=== PATIENT | female | born 1990 | race Two or more races ===

== ENCOUNTER → 2022-09-05 | Outpatient (CLI) | payer SELFPAY ==
[2022-09-10 16:09] LABS: HPV APTIMA, High Risk Negative (Negative)
== END | disposition home or self-care (01) ==
PROVIDERS: Visit Provider Student in an Organized Health Care Education/Training Program
DX: Z12.4 Encounter for screening for malignant neoplasm of cervix (principal)
CPT/HCPCS: 87624; 88175; G0145

== ENCOUNTER → 2023-02-02 | Outpatient (CLI) | payer OTHER, SELFPAY ==
[2023-02-02 18:19] LABS: hCG Titer Quant., Serum 66168 mIU/mL (1-3)
== END | disposition home or self-care (01) ==
PROVIDERS: Referring Provider Registered Nurse; Visit Provider Registered Nurse
DX: O26.859 Spotting complicating pregnancy, unspecified trimester (principal); Z3A.00 Weeks of gestation of pregnancy not specified
CPT/HCPCS: 36415; 84702; 86850; 86900; 86901

== ENCOUNTER → 2023-02-06 | Outpatient (CLI) | payer OTHER, SELFPAY | END | disposition home or self-care (01) | LOC: LAB 16:04 | PROVIDERS: Referring Provider Registered Nurse; Visit Provider Registered Nurse | DX: O26.859 Spotting complicating pregnancy, unspecified trimester (principal); Z3A.00 Weeks of gestation of pregnancy not specified | CPT/HCPCS: 36415; 84702 ==

== ENCOUNTER → 2023-02-11 | Outpatient (CLI) | payer OTHER, SELFPAY ==
--- NOTE | 2023-02-11 07:35 | US_ITS ---
STUDY: FIRST TRIMESTER OBSTETRICAL ULTRASOUND REASON FOR EXAM: Female, 32 years old viability,SPOTTING LMP: December 25, 2022. TECHNIQUE: Transabdominal and Transvaginal TECHNICAL QUALITY: Adequate. PRIOR ULTRASOUND: None. FINDINGS: There is visualization of a single gestational sac in a normal intrauterine position. The mean sac diameter (MSD) measures 3.7 cm, indicating an estimated gestational age (EGA) of 9 weeks, 0 days. The gestational sac shape is within normal limits. There is a visualized yolk sac. The yolk sac measures 4.7 mm. The placenta is non-visualized. There is visualization of a live embryo. The crown-rump length (CRL) measures 2.28 cm, indicating an estimated gestational age (EGA) of 8 weeks, 5 days. There is demonstrated cardiac activity with a heart rate of 174 bpm. The estimated gestation age (EGA) by LMP is 8 weeks, 6 days. The estimated date of delivery (KATE) by LMP is September 17, 2023. The estimated gestation age (EGA) by US is 8 weeks, 6 days. The estimated date of delivery (KATE) by US is September 17, 2023. The uterus measures 11.2 cm x 8.8 cm x 7 cm. There is no demonstrated uterine fibroid. The cervix is closed. Small subchorionic hematoma. Findings suggest 1 1.3 cm x 1.8 cm x 0.7 cm fundal fibroid. The right ovary measures 3.1 cm x 3 cm x 2.3 cm. There is no right ovarian cyst. There is a 3.1 cm x 2.8 cm x 2.4 cm complex solid and cystic mass. Peripheral blood flow is seen. A neoplastic process should be ruled out. This may also represent a coexistent ectopic . The left ovary measures 3.3 cm x 3.7 cm x 1.7. There is no left ovarian cyst. There is no visualized left adnexal mass or complex lesion. There is no fluid in the cul de sac. US/Transvaginal w/Preg US IMPRESSION: Single live intrauterine gestation with a mean gestational age of 8 weeks and 6 days. Complex solid and cystic mass in the right adnexa as described. Coexistent ectopic should be ruled out. Electronically Signed: Kin Martines MD at 9:13 EST ,
== END | disposition home or self-care (01) ==
LOC: US 07:35
PROVIDERS: Referring Provider Registered Nurse; Visit Provider Registered Nurse
DX: O26.859 Spotting complicating pregnancy, unspecified trimester (principal); Z3A.00 Weeks of gestation of pregnancy not specified
CPT/HCPCS: 76817

== ENCOUNTER → 2023-02-13 | Outpatient (CLI) | payer OTHER, SELFPAY ==
[2023-02-17 00:06] LABS: Chlamydia By Nucleic Acid AMP Negative (Negative); Gonococcus By Nucleic Acid AMP Negative (Negative)
== END | disposition home or self-care (01) ==
LOC: LAB 16:56 → LABSPEC 16:59
PROVIDERS: Referring Provider Registered Nurse; Visit Provider Registered Nurse
DX: Z34.90 Encounter for supervision of normal pregnancy, unspecified, unspecified trimester (principal); Z3A.00 Weeks of gestation of pregnancy not specified
CPT/HCPCS: 87086; 87088; 87491; 87591

== ENCOUNTER → 2023-03-04 | Outpatient (CLI) | payer OTHER, SELFPAY ==
[2023-03-04 14:47] LABS: Absolute Neutrophil Count 4.7 X10^3/uL (2.0-7.7); Basophil# 0.02 X10^3/uL; Basophil% 0.3 % (0-1); Eosinophil# 0.16 X10^3/uL; Eosinophils% 2.4 % (0-5); Hematocrit 40.7 % (37-47); Hemoglobin 13.4 g/dL (12.0-15.0); Lymphocyte % 19.4 % (19-41); Mean Corp Hgb Conc 32.9 g/dL (32-36); Mean Corpuscular Hgb 28.7 pg (27.0-32.0); Mean Corpuscular Volume 87.2 fL (81-99); Mean Platelet Vol. 8.8 fl (6.2-12.0); Monocyte# 0.48 X10^3/uL; Monocyte% 7.2 % (0-10); NRBC Flagged by Analyzer 0 % (0-5); Neutrophil # 4.67 X10^3/uL (2.7-7.7); Neutrophil % 69.8 % (47-70); Platelet Count 217 K/mm3 (150-450); RBC Distribution Width CV 13.3 % (11.6-14.6); RBC Distribution Width SD 42.5 fl (35.1-43.9); Red Blood Count 4.67 M/mm3 (4.2-5.4); White Blood Count 6.7 K/mm3 (4.4-11.0)
[2023-03-04 15:14] LABS: NATERA MAILED SPECIMEN
[2023-03-04 17:16] LABS: HIV - WCH Non-Reactive (Nonreactive); Hepatitis B Surface Antigen Non-Reactive (Nonreactive); Hepatitis C Antibody Non-Reactive (Nonreactive); Rubella IgG Reactive (Nonreactive); Syphilis Antibodies Non-reactive
== END | disposition home or self-care (01) ==
PROVIDERS: Referring Provider Registered Nurse; Visit Provider Registered Nurse
DX: Z34.90 Encounter for supervision of normal pregnancy, unspecified, unspecified trimester (principal); Z3A.00 Weeks of gestation of pregnancy not specified
CPT/HCPCS: 85025; 86703; 86762; 86780; 86803; 86850; 86900; 86901; 87340

== ENCOUNTER → 2023-03-04 | Outpatient (CLI) | payer OTHER, SELFPAY ==
--- NOTE | 2023-03-04 13:10 | US_ITS ---
EXAM: US , TRANSVAGINAL CLINICAL INDICATION: OVARIAN CYST IN TECHNIQUE: Real-time transvaginal obstetrical ultrasound of the maternal pelvis and a first trimester with image documentation. Transvaginal imaging was used for better evaluation of the fetus and adnexa. COMPARISON: 02/11/2023 FINDINGS: GESTATION: Mean sac diameter: 5.88 cm. Mcclave-rump length: 6.08 cm (12 weeks, 4 days). Yolk sac: 0.8 cm. heart rate: 150 to beats per minute. PLACENTA/AMNIOTIC FLUID: Posterior placenta. UTERUS/CERVIX: Subserosal, mildly triangulated uterine fibroid measuring 2.8 cm. The cervix is closed. The uterus measures 13.1 x 9.3 x 10.9 cm. OVARIES: No significant abnormality. No mass. The right ovary measures 4.1 x 2.3 x 3.0 cm. The left ovary measures 2.7 x 2.0 x 2.9 cm. FREE FLUID: No free fluid. US/Transvaginal w/Preg US IMPRESSION: Uterine fibroid. This may have been perceived as an adnexal mass on prior exam. Otherwise, viable IUP with interval growth. Electronically Signed: Damon Reynolds DO at 20:19 EST ,
== END | disposition home or self-care (01) ==
PROVIDERS: Referring Provider Obstetrics & Gynecology; Visit Provider Obstetrics & Gynecology
DX: O26.859 Spotting complicating pregnancy, unspecified trimester (principal); N83.8 Other noninflammatory disorders of ovary, fallopian tube and broad ligament; Z3A.00 Weeks of gestation of pregnancy not specified; O99.891 Other specified diseases and conditions complicating pregnancy
CPT/HCPCS: 76817

== ENCOUNTER 2023-04-24 14:16 | Outpatient (CLI) | payer OTHER, SELFPAY ==
--- NOTE | 2023-04-24 14:21 | US_ITS ---
HISTORY: ANATOMY. TECHNIQUE: Transabdominal pelvic ultrasound was performed. 107 images. COMPARISON: 03/04/2023. FINDINGS: UTERUS: Pedunculated 1.9 x 2.8 x 3.9 cm lesion again seen. INTRAUTERINE GESTATION(s): Single. PRESENTATION: Cephalic HEART MOTION: 150 bpm. PLACENTA: Posterior, grade 0. No placenta previa. CERVIX: 3.6 cm, long and closed AMNIOTIC FLUID: Largest fluid pocket 6.1 cm biometry- BIPARIETAL DIAMETER: 4.5 cm, corresponding to 19 weeks 4 days. HEAD CIRCUMFERENCE: 16.4 cm, corresponding to 19 weeks 1 day. ABDOMINAL CIRCUMFERENCE: 13.6 cm, corresponding to 19 weeks 0 days. FEMUR LENGTH: 2.9 cm, corresponding to 18 weeks 6 days. ESTIMATED GESTATIONAL AGE: 19 weeks 1 day. ESTIMATED DUE DATE (KATE): 09/17/2023. ESTIMATED WEIGHT: 271 g corresponding to 39th percentile. ANATOMY: Face with orbits, nose/lips, facial profile, anterior and posterior cranial fossa, spine, bilateral upper and lower extremities, four-chamber heart, three-vessel cord insertion, stomach, kidneys, and bladder visualized US/OB Anatomy w/ Transvaginal IMPRESSION: Single living intrauterine with an estimated gestational age of 19 weeks 1 day. Unremarkable anatomic survey. Redemonstration of 2.8 cm pedunculated leiomyoma of the maternal uterus. Electronically Signed: Cici Fortune MD at 12:21 EST ,
== END 2023-04-24 23:59 | disposition home or self-care (01) ==
PROVIDERS: Referring Provider Nurse Practitioner Women's Health; Visit Provider Nurse Practitioner Women's Health
DX: Z34.92 Encounter for supervision of normal pregnancy, unspecified, second trimester (principal); Z3A.19 19 weeks gestation of pregnancy
CPT/HCPCS: 76805; 76817

== ENCOUNTER → 2023-06-26 | Outpatient (CLI) | payer OTHER, SELFPAY ==
[2023-06-26 15:27] LABS: Absolute Lymphocyte Count 1.43 X10^3/uL (0.83-4.51); Absolute Neutrophil Count 7.4 X10^3/uL (2.0-7.7); Basophil# 0.04 X10^3/uL; Basophil% 0.4 % (0-1); Eosinophil# 0.13 X10^3/uL; Eosinophils% 1.4 % (0-5); Hematocrit 35.5 % (37-47); Hemoglobin 11.8 g/dL (12.0-15.0); Lymphocyte # 1.43 X10^3/ul (0.83-4.51); Lymphocyte % 14.9 % (19-41); Mean Corp Hgb Conc 33.2 g/dL (32-36); Mean Corpuscular Hgb 28.9 pg (27.0-32.0); Mean Corpuscular Volume 86.8 fL (81-99); Mean Platelet Vol. 9.3 fl (6.2-12.0); Monocyte# 0.43 X10^3/uL; Monocyte% 4.5 % (0-10); NRBC Flagged by Analyzer 0 % (0-5); Neutrophil # 7.42 X10^3/uL (2.7-7.7); Neutrophil % 77.3 % (47-70); Platelet Count 240 K/mm3 (150-450); RBC Distribution Width CV 13.2 % (11.6-14.6); RBC Distribution Width SD 41.4 fl (35.1-43.9); Red Blood Count 4.09 M/mm3 (4.2-5.4); White Blood Count 9.6 K/mm3 (4.4-11.0)
[2023-06-26 16:03] LABS: Glucose Challenge Gest 1H 50g 150 mg/dL (70-140)
[2023-06-26 16:33] LABS: HIV - WCH Non-Reactive (Nonreactive); Syphilis Antibodies Non-reactive
== END | disposition home or self-care (01) ==
PROVIDERS: Obstetrics & Gynecology; Referring Provider Obstetrics & Gynecology; Visit Provider Obstetrics & Gynecology
DX: O09.92 Supervision of high risk pregnancy, unspecified, second trimester (principal); Z13.1 Encounter for screening for diabetes mellitus; Z3A.00 Weeks of gestation of pregnancy not specified
CPT/HCPCS: 36415; 82950; 85025; 86703; 86780

== ENCOUNTER → 2023-07-07 | Outpatient (CLI) | payer OTHER, SELFPAY ==
[2023-07-07 10:46] LABS: Glucose GTT-Gestation. Fasting 94 mg/dL (<105)
[2023-07-07 11:49] LABS: Glucose GTT-Gestational 1 Hr 160 mg/dL (<190)
[2023-07-07 12:53] LABS: Glucose GTT-Gestational 2 Hr 109 mg/dL (<165)
== END | disposition home or self-care (01) ==
LOC: LAB 09:49
PROVIDERS: Referring Provider Obstetrics & Gynecology; Visit Provider Obstetrics & Gynecology
DX: O99.810 Abnormal glucose complicating pregnancy (principal); Z3A.00 Weeks of gestation of pregnancy not specified
CPT/HCPCS: 36415; 82951; 82952

== ENCOUNTER → 2023-08-24 | Outpatient (CLI) | payer OTHER, SELFPAY ==
--- NOTE | 2023-08-24 15:50 | US_ITS ---
STUDY: SECOND AND THIRD TRIMESTER OBSTETRICAL ULTRASOUND - LIMITED REASON FOR EXAM: Female, 33 years old gestational diabetes PRIOR ULTRASOUND: Prior study dated: 04/24/2023 TECHNIQUE: Transabdominal pelvic ultrasound. TECHNICAL QUALITY: Adequate. FINDINGS: There is a single intrauterine fetus. The fetus is in a cephalic presentation. There is demonstrated cardiac activity with a heart rate of 158 bpm. There is decreased amniotic fluid volume consistent with oligohydramnios. The largest amniotic fluid pocket measures 4.4 cm. The amniotic fluid index (ADVIN) is 6.9 cm. The placenta is posterior in location and is not low lying. There are Grade 2 placental changes. The cervix is not visualized. BIOMETRY: BPD: 9.3 cm: 37 weeks, 4 days HC: 32.8 cm: 37 weeks, 2 days AC: 32.6 cm: 36 weeks, 3 days FL: 6.8 cm: 34 weeks, 6 days Age by LMP: 36 weeks, 4 days. KATE by LMP: 09/17/2023. age by current US: 36 weeks, 4 days. KATE by current US: 09/17/2023. Estimated weight: 2922 grams, +/- 438 grams, 48 percentile. US/OB Limited With Biometrics IMPRESSION: Single live intrauterine with gestational age by ultrasound of 36 weeks 4 days. Oligohydramnios. Electronically Signed: Jatin Fernández MD at 22:45 EDT ,
== END | disposition home or self-care (01) ==
PROVIDERS: Referring Provider Obstetrics & Gynecology; Visit Provider Obstetrics & Gynecology
DX: O09.92 Supervision of high risk pregnancy, unspecified, second trimester (principal); Z3A.00 Weeks of gestation of pregnancy not specified
CPT/HCPCS: 76816; 87077; 87081; 87186

== ENCOUNTER 2023-08-26 15:15 | Inpatient (IN) | payer OTHER, SELFPAY ==
[2023-08-26] VITALS (16 sets, daily range): BP systolic 92–124; BP diastolic 58–75; PULSE 71–101; RESP 14–18; TEMP 36.2–36.9; O2SAT 97–100; BMI 32.1
--- NOTE | 2023-08-26 10:58 | US_ITS ---
STUDY: OBSTETRICAL ULTRASOUND - BIOPHYSICAL PROFILE REASON FOR EXAM: Female, 33 years old suspected oligohydramnios LMP: December 11, 2022. PRIOR ULTRASOUND: Comparison is made with prior study dated August 24, 2023. TECHNIQUE: Transabdominal TECHNICAL QUALITY: Adequate. FINDINGS: There is a single intrauterine fetus. The fetus is in a cephalic presentation. There is demonstrated cardiac activity with a heart rate of 143 bpm. There is a normal amniotic fluid volume. The largest amniotic fluid pocket measures 3.87 x 3.2 cm. The amniotic fluid index (DAVIN) is 10.5 cm. The placenta is posterior in location and is not low lying. There are Grade 0 placental changes. Age by LMP: 36 weeks, 6 days. KATE by LMP: September 17, 2023. age by prior US: 36 weeks, 6 days. KATE by prior US: September 17, 2023. BIOPHYSICAL PROFILE: Breathing Movements (FBM): 2 Gross Body Movements (GBM): 2 Tone (FT): 2 Amniotic Fluid Volume (AFV): 2 TOTAL SCORE: 8 / 8 US/Biophysical Prof W/O Non Stres IMPRESSION: Normal biophysical profile of 8/8. Electronically Signed: Kin Martines MD at 12:15 EDT ,
--- NOTE | 2023-08-26 12:55 | OB.TRI.HP_ITS ---
HPI - General HPI Narrative MILLY OCHOA, is a 33 y/o who presents to L&D due to low fluid noted on ultrasound 2 days ago that was not reported to our office until today. The repeat DAVIN today is 10 with a bpp of 8/8 however during her NST there was a prolonged decel that touched 80 bpm and slowly returned to baseline. Since then (40 minutes) the tracing is category 1 without decelerations Maternal Data Information KATE Calculator Estimated Delivery Date Method Current WG Current Estimate 09/17/23 LMP (Certain) 36w 6d PFSH PFSH Home Medications ?Medication ?Instructions ?Recorded ?Last Taken ?Type docosahexaenoic acid 200 mg mg PO 02/12/23 Unknown History capsule ( DHA) blood sugar diagnostic (Blood #120 ea 07/09/23 Unknown Rx Glucose Test strips) blood-glucose meter #1 ea 07/09/23 Unknown Rx lancets #200 ea 07/09/23 Unknown Rx flash glucose scanning reader #1 ea 07/24/23 Unknown Rx (FreeStyle Agustin 2 [place]) flash glucose sensor (FreeStyle #1 ea 07/24/23 Unknown Rx Agustin 2 Sensor kit) Allergy/AdvReac Type Severity Reaction Status Date / Time No Known Allergies Allergy Verified 08/24/23 14:50 Family History Grandmother Cancer Stomach Grandfather Diabetes Surgical History H/O section Social History adopted: No household members: spouse, children and other details: [id number] housing: house number of children: 1 current occupational status: employed current occupation: [employer] current occupational exposures/hazards: No pets and animals: Yes (1) pets and animals: other details: bunny history of recent travel: Yes details: - September out of state: Yes out of country: No sexually active: Yes Smoking Status: Never smoker alcohol intake: never substance use type: does not use well-balanced diet: daily or most days caffeine: No eating out: rarely or never during the past year weight has: remained stable what type of physical activity do you participate in: bicycling frequency: 3-4 times per week duration: 30-45 minutes/day dana/baptist: [employer] seatbelt use: always do you feel safe at home: No additional social history: : 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 Date Name GA/Weeks Outcome Route Bth Weight Infant Gen Labor Lgth Ane sthesia Del Locatn Provider FOB 11/07/13 Victoria 39 live - full term 6lbs Female epidural [place] Delivery Date: 11/07/13 Last Updated by: Kya Ramon, CHRISTOPHM had meconium, no issues Visit Details Expected Delivery Route/Plan undecided tolac vs repeat cs patient counseled regarding risks/benefits of trial of labor versus repeat . ACOG/uptodate education given to patient. [] % likelihood of success per calculator TOLAC consent form signed: [] Labor Preferences- CB/BF classes: [] labor support person: [] labor intervention preferences: [] pain management options preferred: [] cut cord/dad catch: [] : [] PP control planned: [] discussed possible routes of delivery and associated risks: [] special requests: [] Plans Covid status: [] Flu vaccine: [] Tdap vaccine: [] Rhogam: [] LARC form signed: [] Problem list reviewed and updated with the most current plan of care details and appropriate orders placed. Relevant counseling for the gestational age provided. Continue routine care and follow up unless otherwise noted in visit notes/problem list details OB Flowsheet Initial Weight: 165 lb Date -?-?-?-?-?-?-?-?-?-?--?-?- EGA Weight BP Urine Prot -?-?-?-?-?-?-?-?-?-?-?-?- Glucose FHR FuHt Pres Dilation -?-?-?-?-?-?-?-?-?-?-?-?- Effaced St Visit Note 02/13/23 -?-?-?-?-?-?-?-?-?-?-?-?- 9w 1d 165 lb 4 oz (+4 oz) 122/84 -?-?-?-?-?-?-?-?-?-?-?-?- 171 -?-?-?-?-?-?-?-?-?-?-?-?- LC- CRL con with LMP 03/11/23 -?-?-?-?-?-?-?-?-?-?-?-?- 12w 6d 169 lb 4 oz (+4 lb 4 oz) 116/77 Negative -?-?-?-?-?-?-?-?-?-?-?-?- Negative 162 -?-?-?-?-?-?-?-?-?-?-?-?- MH-No further VB . Reviewed normal PN labs. Denies concerns 04/10/23 -?-?-?-?-?-?-?-?-?-?-?-?- 17w 1d 168 lb 8 oz (+3 lb 8 oz) 104/71 Negative -?-?-?-?-?-?-?-?-?-?-?-?- Negative 149 -?-?-?-?-?-?-?-?-?-?-?-?- LC- no vb/crampi ng. anatomy to be scheduled with [facility] due to insurance coverage. order in. 05/08/23 -?-?-?-?-?-?-?--?-?-?-?-?- 21w 1d 172 lb (+7 lb) 118/76 Negative -?-?-?-?-?-?-?-?-?-?-?-?- Negative 157 -?-?-?-?-?-?-?-?-?-?-?-?- JV- no lof, vagi nal bleeding, or cramping. normal [facility] anatomy scan. 06/05/23 -?-?-?-?-?-?-?-?-?-?-?-?- 25w 1d 176 lb (+11 lb) 101/69 Negative -?-?-?-?-?-?-?-?-?-?-?-?- Negative 145 29 -?-?-?-?-?-?-?-?-?-?-?-?- KW-no lof/vb/ctx . good fm. 28 week labs discussed. KW-no lof/vb/ctx. good fm. 2 8 week labs discussed. Unsure if she desires TOLAC or R C/S. Has P C/S in [place] for mec stained fluid. She was 6cm. Requested her to bring in records of previous c/s to know mode of delivery. 06/26/23 -?-?-?-?-?-?-?-?-?-?-?-?- 28w 1d 179 lb 2 oz (+14 lb 2 oz) 124/77 Negative -?-?-?-?-?-?-?-?-?-?-?-?- Negative 140 28 -?-?-?-?-?-?-?-?-?-?-?-?- JV- no lof, vagi nal bleeding, or dec fm. plan for tdap next visit. gct pending. 07/09/23 -?-?-?-?-?-?-?-?-?-?-?-?- 30w 0d 177 lb 6 oz (+12 lb 6 oz) 100/68 Negative -?-?-?-?-?-?-?-?-?-?-?-?- Negative 147 30 -?-?-?-?-?-?-?-?-?-?-?-?- MH-No VB, LOF. G ood FM. Larc. Tdap. Discussed results of 3 hr GTT:missed 4th draw-was told by lab all done, go eat, so left. Will check glucose QID. 07/24/23 -?-?-?-?-?-?-?-?-?-?-?-?- 32w 1d 178 lb 6 oz (+13 lb 6 oz) 100/67 Negative -?-?-?-?-?-?-?-?-?-?-?-?- Negative 138 32 -?-?-?-?-?-?-?-?-?-?-?-?- JV- glucose log reviewed.there were 2 outliers. continue monitoring. pt wants a agustin or dexcon. she also wants to now. r/b/a discussed. will need consent form by 36 weeks. 08/04/23 -?-?-?-?-?-?-?-?-?-?-?-?- 33w 5d 175 lb 4 oz (+10 lb 4 oz) 106/68 Negative -?-?-?-?-?-?-?-?-?-?-?-?- Negative 125 35 -?-?-?-?-?-?-?-?-?-?-?-?- JV- glucose log reviewed and overall doing well. plan to write down the outliers separate for easier review. no lof, vaginal bleeding, or dec fm. 08/17/23 -?-?-?-?-?-?-?-?-?-?-?-?- 35w 4d 177 lb (+12 lb) 102/65 Negative -?-?-?-?-?-?-?-?-?-?-?-?- Negative 135 36 -?-?-?-?-?-?-?-?-?-?-?-?- KW- Good fm. no vb/lof/ctx. Has C/S scheduled for september 09 with [facility]. discussed gbs and US next week. 08/24/23 -?-?-?-?-?-?-?-?-?-?-?-?- 36w 4d 178 lb 6 oz (+13 lb 6 oz) 115/77 Negative -?-?-?-?-?-?-?-?-?-?-?-?- Negative 135 37 Cephalic 2 -?-?-?-?-?-?-?-?-?-?-?-?- 70 -2 KW-no vb/l of/cramping. good fm. US today. GBS today. ROS Constitutional Constitutional: Reports systems reviewed and no addt'l complaints, except as documented Gastrointestinal Gastrointestinal: Denies bloating, constipation, cramping, diarrhea, nausea or vomiting Genitourinary Genitourinary: Reports other Details: Denies vaginal odor, vaginal bleeding, or vaginal discharge ; Denies difficulty urinating or flank pain Physical Exam HEENT normocephalic Resp normal respiratory effort and normal air movement no CVA tenderness Speculum Exam - Cervix: other 2/60/-3 firm, midposition Extremity normal to inspection General Extremity: edema bilateral (trace ) NST FHR Rate Baby A Baseline: 140 Variability:: Moderate Accelerations:: 15 x 15 Decelerations:: Variable and Prolonged NST Reactive:: Yes FHR Category:: Category II Assessment & Plan (1) Abnormal glucose affecting : COMMENT: Missed 4th draw-lab told her she could leave and go eat. Patient with test glucose X 2 weeks. (2) H/O section: COMMENT: Wants C Section!! in [place], 2013. P C/C for Mec stained fluid. Records needed. -unable to get records. incision is unknown. -she is undecided if wants to proceed with rpt section or wants TOLAC. risks discussed today. -as of 07/24/2023 wants to try . -changed mind about on 08/03. plan rpt section RLTCS scheduled for 09/09 @ 7:10 with [facility] (3) Supervision of high-risk : QUALIFIERS: Trimester: second trimester Qualified Code(s): O09.92 - Supervision of high risk , unspecified, second trimester COMMENT: , KATE 09/17/23, PC: Victoria, : Sharif (4) : QUALIFIERS: Weeks of gestation: 36 weeks Qualified Code(s): Z3A.36 - 36 weeks gestation of COMMENT: Discussed genetic/carrier testing, nl anatomy (5) Uterine fibroid: QUALIFIERS: Uterine leiomyoma location: unspecified location Qualified Code(s): D25.9 - Leiomyoma of uterus, unspecified COMMENT: small subserosal fibroid PLAN: Plan plan at this time is to monitor longer. if has another deceleration will proceed with section. Charges/Coding Multi Select Codes Visit Charges Office Visit/Consults: 87039 OV L3 Est 20min Urinary/Genital Urinary/Genital CPT Codes: 62552-65 non-stress test Interp
[2023-08-26] MEDS: Lactated Ringers 1,000 ML 999 ML IV (15:40)
[2023-08-26 15:53] LABS: Absolute Lymphocyte Count 1.98 X10^3/uL (0.83-4.51); Absolute Neutrophil Count 9.2 X10^3/uL (2.0-7.7); Basophil# 0.03 X10^3/uL; Basophil% 0.3 % (0-1); Eosinophil# 0.05 X10^3/uL; Eosinophils% 0.4 % (0-5); Hemoglobin 11.8 g/dL (12.0-15.0); Lymphocyte # 1.98 X10^3/ul (0.83-4.51); Lymphocyte % 16.5 % (19-41); Mean Corp Hgb Conc 32.8 g/dL (32-36); Mean Corpuscular Hgb 27.9 pg (27.0-32.0); Mean Corpuscular Volume 85.1 fL (81-99); Mean Platelet Vol. 9.5 fl (6.2-12.0); Monocyte# 0.65 X10^3/uL; Monocyte% 5.4 % (0-10); NRBC Flagged by Analyzer 0 % (0-5); Neutrophil # 9.18 X10^3/uL (2.7-7.7); Neutrophil % 76.5 % (47-70); Platelet Count 243 K/mm3 (150-450); RBC Distribution Width CV 12.9 % (11.6-14.6); RBC Distribution Width SD 39.5 fl (35.1-43.9); Red Blood Count 4.23 M/mm3 (4.2-5.4)
[2023-08-26] MEDS: Acetaminophen 500 MG Tablet 1000 MG PO ×2 (15:57→21:46)
[2023-08-26] MEDS: Sodium Citrate/Citric Acid 30 ML UDC PO (15:57)
[2023-08-26] MEDS: Cefazolin 2 GM in 0.9% Normal Saline (100mL Bag) 100 ML IV (15:57)
--- NOTE | 2023-08-26 16:34 | HP.PCM.OB_ITS ---
HPI - General General Date of Admission: 08/26/23 HPI Narrative MILLY OCHOA, is a 33 y/o @ 36 weeks 6 days who presents to L&D initially for a stat repeat DAVIN due to oligohydramnios reading on ultrasound 2 days ago. The repeat davin wsa 10 and bpp was 8/8, however the tracing showed 3 separate heart rate decelerations including one prolonged deceleration. The patient also complains of pain in her abdominal area but states is mild and she thinks could be contractions. She has a history of prior section with an unknown incision scar on the uterus. She was delivered [place]. Plan is for a repeat section now. Maternal Data Information KATE Calculator Estimated Delivery Date Method Current WG Current Estimate 09/17/23 LMP (Certain) 36w 6d PFSH [facility] Medical History (Updated 08/26/23 @ 16:[address] Sridevi Barth, DO) Gestational diabetes Home Medications ?Medication ?Instructions ?Recorded ?Last Taken ?Type blood sugar diagnostic (Blood #120 ea 07/09/23 Unknown Rx Glucose Test strips) blood-glucose meter #1 ea 07/09/23 Unknown Rx lancets #200 ea 07/09/23 Unknown Rx flash glucose scanning reader #1 ea 07/24/23 Unknown Rx (FreeStyle Agustin 2 [place]) flash glucose sensor (FreeStyle #1 ea 07/24/23 Unknown Rx Agustin 2 Sensor kit) Allergy/AdvReac Type Severity Reaction Status Date / Time No Known Allergies Allergy Verified 08/26/23 15:24 Family History Grandmother Cancer Stomach Grandfather Diabetes Surgical History H/O section Social History adopted: No household members: spouse, children and other details: [id number] housing: house number of children: 1 current occupational status: employed current occupation: [employer] - [employer] current occupational exposures/hazards: No pets and animals: Yes (1) pets and animals: other details: bunny history of recent travel: Yes details: - September out of state: Yes out of country: No sexually active: Yes Smoking Status: Never smoker alcohol intake: never substance use type: does not use well-balanced diet: daily or most days caffeine: No eating out: rarely or never during the past year weight has: remained stable what type of physical activity do you participate in: bicycling frequency: 3-4 times per week duration: 30-45 minutes/day dana/shinto: Evangelical seatbelt use: always do you feel safe at home: No additional social history: : 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 Date Name GA/Weeks Outcome Route Bth Weight Gen Labor Lgth Anesthesia Del Locatn Provider FOB 11/07/13 Victoria 39 live - full term 6lbs Female epidural [place] Delivery Date: 11/07/13 Last Updated by: CHRISTOPH PérezM had meconium, no issues Visit Details Expected Delivery Route/Plan undecided tolac vs repeat cs patient counseled regarding risks/benefits of trial of labor versus repeat . ACOG/uptodate education given to patient. [] % likelihood of success per calculator TOLAC consent form signed: [] Labor Preferences- CB/BF classes: [] labor support person: [] labor intervention preferences: [] pain management options preferred: [] cut cord/dad catch: [] : [] PP control planned: [] discussed possible routes of delivery and associated risks: [] special requests: [] Plans Covid status: [] Flu vaccine: [] Tdap vaccine: [] Rhogam: [] LARC form signed: [] Problem list reviewed and updated with the most current plan of care details and appropriate orders placed. Relevant counseling for the gestational age provided. Continue routine care and follow up unless otherwise noted in visit notes/problem list details OB Flowsheet Initial Weight: 165 lb Date -?-?-?-?-?-?-?-?-?-?-?-?- EGA Weight BP Urine Prot -?-?-?-?-?-?-?-?-?-?-?-?- Glucose FHR FuHt Pres Dilation -?-?-?-?-?-?-?-?-?-?-?-?- Effaced St Visit Note 02/13/23 -?-?-?-?-?-?-?-?-?-?-?-?- 9w 1d 165 lb 4 oz (+4 oz) 122/84 -?-?-?-?-?-?-?-?-?-?-?-?- 171 -?-?-?-?-?-?-?-?-?-?-?-?- LC- CRL con with LMP 03/11/23 -?-?-?-?-?-?-?-?-?-?-?-?- 12w 6d 169 lb 4 oz (+4 lb 4 oz) 116/77 Negative -?-?-?-?-?-?-?-?-?-?-?-?- Negative 162 -?-?-?-?-?-?-?-?-?-?-?-?- MH-No further VB . Reviewed normal PN labs. Denies concerns 04/10/23 -?-?-?-?--?-?-?-?-?-?-?-?- 17w 1d 168 lb 8 oz (+3 lb 8 oz) 104/71 Negative -?-?-?-?-?-?-?-?-?-?-?-?- Negative 149 -?-?-?-?-?-?-?-?-?-?-?-?- LC- no vb/crampi ng. anatomy to be scheduled with [facility] due to insurance coverage. order in. 05/08/23 -?-?-?-?-?-?-?-?-?-?-?-?- 21w 1d 172 lb (+7 lb) 118/76 Negative -?-?-?-?-?-?-?-?-?-?-?-?- Negative 157 -?-?-?-?-?-?-?-?-?-?-?-?- JV- no lof, vagi nal bleeding, or cramping. normal [facility] anatomy scan. 06/05/23 -?-?-?-?-?-?-?-?-?-?-?-?- 25w 1d 176 lb (+11 lb) 101/69 Negative -?-?-?-?-?-?-?-?-?-?-?-?- Negative 145 29 -?-?-?-?-?-?-?-?-?-?-?-?- KW-no lof/vb/ctx . good fm. 28 week labs discussed. KW-no lof/vb/ctx. good fm. 2 8 week labs discussed. Unsure if she desires TOLAC or R C/S. Has P C/S in [place] for mec stained fluid. She was 6cm. Requested her to bring in records of previous c/s to know mode of delivery. 06/26/23 -?-?-?-?-?-?-?-?-?-?-?-?- 28w 1d 179 lb 2 oz (+14 lb 2 oz) 124/77 Negative -?-?-?-?-?-?-?-?-?-?-?-?- Negative 140 28 -?-?-?-?-?-?-?-?-?-?-?-?- JV- no lof, vagi nal bleeding, or dec fm. plan for tdap next visit. gct pending. 07/09/23 -?-?-?-?-?-?-?-?-?-?-?-?- 30w 0d 177 lb 6 oz (+12 lb 6 oz) 100/68 Negative -?-?-?-?-?-?-?-?-?-?-?-?- Negative 147 30 -?-?-?-?-?-?-?-?-?-?-?-?- MH-No VB, LOF. G ood FM. Larc. Tdap. Discussed results of 3 hr GTT:missed 4th draw-was told by lab all done, go eat, so left. Will check glucose QID. 07/24/23 -?-?-?-?-?-?-?-?-?-?-?-?- 32w 1d 178 lb 6 oz (+13 lb 6 oz) 100/67 Negative -?-?-?-?-?-?-?-?-?-?-?-?- Negative 138 32 -?-?-?-?-?-?-?-?-?-?-?-?- JV- glucose log reviewed.there were 2 outliers. continue monitoring. pt wants a agustin or dexcon. she also wants to now. r/b/a discussed. will need consent form by 36 weeks. 08/04/23 -?-?-?-?-?-?-?-?-?-?-?-?- 33w 5d 175 lb 4 oz (+10 lb 4 oz) 106/68 Negative -?-?-?-?-?-?-?-?-?-?-?-?- Negative 125 35 -?-?-?-?-?-?-?-?-?-?-?-?- JV- glucose log reviewed and overall doing well. plan to write down the outliers separate for easier review. no lof, vaginal bleeding, or dec fm. 08/17/23 -?-?-?-?-?-?-?-?-?-?-?-?- 35w 4d 177 lb (+12 lb) 102/65 Negative -?-?-?-?-?-?-?-?-?-?-?-?- Negative 135 36 -?-?-?-?-?-?-?-?-?-?-?-?- KW- Good fm. no vb/lof/ctx. Has C/S scheduled for september 09 with [facility]. discussed gbs and US next week. 08/24/23 -?-?-?-?-?-?-?-?-?-?-?-?- 36w 4d 178 lb 6 oz (+13 lb 6 oz) 115/77 Negative -?-?-?-?-?-?-?--?-?-?-?-?- Negative 135 37 Cephalic 2 -?-?-?-?-?-?-?-?-?-?-?-?- 70 -2 KW-no vb/l of/cramping. good fm. US today. GBS today. ROS Constitutional Constitutional: Denies change in weight, fatigue, fever(s), headache(s), poor appetite or weakness Eyes Eyes: Denies blurry vision, change in vision, seeing flashes or spots in vision ENT HEENT: Denies dizziness, headache(s), loss taste/smell or sore throat Cardiovascular Cardiovascular: Denies chest pain, dizziness, dyspnea, irregular heart rhythm, leg edema, palpitations, rapid heart rate or vomiting Respiratory/Chest Respiratory/Chest: Denies chest tightness, cough, dyspnea or breast pain Gastrointestinal Gastrointestinal: Denies abdominal pain, anorexia, constipation, cramping, diarrhea, hemorrhoids, vomiting or weight changes Genitourinary Genitourinary: Denies dysuria, flank pain, genital lesions, genital pain, urinary frequency or urinary urgency Musculoskeletal Musculoskeletal: Denies back pain, difficulty walking, joint pain, limited range of motion, muscle cramps or numbness Integumentary Integumentary: Denies lesions or unusual bruising Neurologic Neurologic: Denies abnormal movements, abnormal speech, dizziness, numbness, seizure-like activity or syncope Psychiatric Psychiatric: Denies anxiety, behavioral changes, change in appetite, change in libido, cognitive impairment, confusion, depression, difficulty concentrating, hallucinations or suicidal thoughts Endocrine Endocrinology: Denies excessive sweating, polydipsia or polyuria Hematologic/Lymphatic Hematologic/Lymphatic: Denies easy bleeding, easy bruising or lymphadenopathy Allergic/Immunologic Allergic/Immunologic: Denies itchy eyes, lip swelling, seasonal rhinorrhea, rhinitis, throat swelling, tongue swelling, eczemia, wheezing or asthma Vital Signs Vital Signs Vital Signs: 08/26/23 11:39 08/26/23 11:39 08/26/23 11:40 Temperature Temperature Source Tympanic Pulse Rate 93 Respiratory Rate Blood Pressure 118/75 Blood Pressure Mean BP Systolic 118 BP Diastolic 75 Blood Pressure Source Blood Pressure Position Blood Pressure Location Pulse Ox Oxygen Delivery Method 08/26/23 11:40 08/26/23 11:40 08/26/23 15:47 Temperature 97.8 F 98.4 F Temperature Source Temporal Pulse Rate 91 Respiratory Rate 15 16 Blood Pressure 124/74 H Blood Pressure Mean 90 BP Systolic BP Diastolic Blood Pressure Source Monitor Blood Pressure Position Sitting Blood Pressure Location Left Arm Pulse Ox 99 Oxygen Delivery Method Room Air 08/26/23 15:48 08/26/23 15:48 08/26/23 15:48 Temperature Temperature Source Pulse Rate 91 101 H Respiratory Rate Blood Pressure 124/74 H Blood Pressure Mean BP Systolic 124 BP Diastolic 74 Blood Pressure Source Blood Pressure Position Blood Pressure Location Pulse Ox Oxygen Delivery Method 08/26/23 15:48 Temperature Temperature Source Pulse Rate Respiratory Rate Blood Pressure Blood Pressure Mean BP Systolic BP Diastolic Blood Pressure Source Blood Pressure Position Blood Pressure Location Pulse Ox 99 Oxygen Delivery Method Weight Weight: 175 lb 6.4 oz Body Mass Index (BMI) 32.1 Physical Exam Const alert, oriented x3, no apparent distress and healthy appearing General Appearance: cooperative; Negative for anxious HEENT normocephalic Face and Sinus: normal facial exam Eyes EOMs intact bilaterally and no scleral icterus General Eye: normal appearance of both eyes Neck full ROM and supple Lymph Lymphatic: no lymphadenopathy noted Chest Chest: abnormal inspection of the chest Resp normal respiratory effort Effort and Inspection: able to speak in complete sentences Cardio regular rate GI soft to palpation and non-tender Inspection: gravid Palpation: soft; Negative for tender external exam normal Back/Spine no CVA tenderness Extremity normal to inspection, full ROM and no clubbing, cyanosis or edema General Extremity: Negative for calf tenderness or edema Skin Lesions: no lesions Rashes: no rashes Psych mental status grossly normal Labs Labs Labs: Blood Type O POSITIVE Antibody Screen NEGATIVE Hct 36.0 % (37-47) L Hgb 11.8 g/dL (12.0-15.0) L Obstetrics Ultrasound Syphilis Total Ab Non-reactive Rubella IgG Antibody Reactive (Nonreactive) Hep Bs Antigen Non-Reactive (Nonreactive) Hepatitis C Antibody Non-Reactive (Nonreactive) Chlamydia DNA (MARYANN) Negative (Negative) N.gonorrhoeae DNA (MARYANN) Negative (Negative) HIV 1&2 Antibody Non-Reactive (Nonreactive) Glucose 1 Hr 50 gm 150 mg/dL (70-140) H Gest Glucose Tolerance MG/DL Assessment & Plan (1) Abnormal glucose affecting : COMMENT: Missed 4th draw-lab told her she could leave and go eat. Patient with test glucose X 2 weeks. (2) Supervision of high-risk : QUALIFIERS: Trimester: second trimester Qualified Code(s): O09.92 - Supervision of high risk , unspecified, second trimester COMMENT: , KATE 09/17/23, PC: Victoria, : Sharif (3) : QUALIFIERS: Weeks of gestation: 36 weeks Qualified Code(s): Z3A.36 - 36 weeks gestation of COMMENT: Discussed genetic/carrier testing, nl anatomy (4) Uterine fibroid: QUALIFIERS: Uterine leiomyoma location: unspecified location Qualified Code(s): D25.9 - Leiomyoma of uterus, unspecified COMMENT: small subserosal fibroid (5) H/O section: COMMENT: Wants C Section!! in [place], 2014. P C/C for Mec stained fluid. Records needed. -unable to get records. incision is unknown. -she is undecided if wants to proceed with rpt section or wants TOLAC. risks discussed today. -as of 07/24/2023 wants to try . -changed mind about on 08/03. plan rpt section RLTCS scheduled for 09/09 @ 7:10 with JV (6) heart rate decelerations affecting management of mother: PLAN: Plan After discussing the patient's diagnosis and treatment plan options, patient wishes to proceed with surgical management. I have discussed with the patient the risks, benefits, and alternatives of the procedure which include but are not limited to risks of anesthesia, bleeding, infection, possible damage to bowel, bladder, or surrounding vasculature which could lead to additional surgery to evaluate any complications. Patient agrees to procedure and wishes to proceed. ACOG/uptodate references given for additional information regarding procedure.
[2023-08-26 16:47] LABS: Syphilis Antibodies Non-reactive
[2023-08-26 16:48] LABS: Bedside Glucose 57 mg/dL (74-106)
[2023-08-26 16:48] LABS: Bedside Glucose 68 mg/dL (74-106)
--- NOTE | 2023-08-26 17:29 | EX.PCM.OBRPT ---
Assessment & Plan (1) heart rate decelerations affecting management of mother: (2) Abnormal glucose affecting : COMMENT: Missed 4th draw-lab told her she could leave and go eat. Patient with test glucose X 2 weeks. (3) Supervision of high-risk : QUALIFIERS: Trimester: second trimester Qualified Code(s): O09.92 - Supervision of high risk , unspecified, second trimester COMMENT: , KATE 09/17/23, PC: Victoria, : Sharif (4) : QUALIFIERS: Weeks of gestation: 36 weeks Qualified Code(s): Z3A.36 - 36 weeks gestation of COMMENT: Discussed genetic/carrier testing, nl anatomy (5) Uterine fibroid: QUALIFIERS: Uterine leiomyoma location: unspecified location Qualified Code(s): D25.9 - Leiomyoma of uterus, unspecified COMMENT: small subserosal fibroid (6) H/O section: COMMENT: Wants C Section!! in [place], 2013. P C/C for Mec stained fluid. Records needed. -unable to get records. incision is unknown. -she is undecided if wants to proceed with rpt section or wants TOLAC. risks discussed today. -as of 07/24/2023 wants to try . -changed mind about on 08/03. plan rpt section RLTCS scheduled for 09/09 @ 7:10 with [facility] Maternal Data Information KATE Calculator Estimated Delivery Date Method Current WG Current Estimate 09/17/23 LMP (Certain) 36w 6d Final KATE: 09/17/23 Final KATE Source: LMP Gestational age: 36 weeks 6 days Details Operative Information Date of Procedure: 08/26/23 Pre-Operative Diagnosis: 33 y/o @ 36 weeks 6 days, heart rate decelerations, history of prior section Post-Operative Diagnosis: 33 y/o @ 36 weeks 6 days, heart rate decelerations, history of prior section Classification: PATRICK Procedure Type: low transverse fundraising manager #1: Lana Sherman Type of Anesthesia: Spinal Antibiotic Given: Ancef 2 grams IV x1 Estimated Blood Loss: 300cc Procedure Start Time: 16:52 Procedure Stop Time: 17:18 Time of Delivery: 16:56 Findings Description of Procedure: Procedure: The patient was brought to the operating room and spinal anesthesia was found to be adequate. She was prepped and draped in the normal sterile fashion and was placed in a dorsal supine position with a leftward tilt. Pfannenstiel skin incision was made with a scalpel and carried through to the underlying layers. The fascia was nicked in the midline and extended laterally using Phoenix scissors. The anterior aspect of the fascia was grasped with Kaity clamps and the underlying rectus muscles dissected off using the Metzenbaum scissors. The inferior aspect the fascia was also grasped with Kaity clamps and the underlying rectus muscle dissected off with the Metzenbaum scissors. The rectus muscles were in the midline. Peritoneum was entered sharply. The uterus was identified and a bladder blade was inserted into the abdomen. Bladder flap was created off the uterus using Metzenbaum scissors. A transverse incision was made with a scalpel and extended laterally manually. The infant's head was grasped with the help of my assistant men's soccer coach and fundal pressure the was delivered through the uterine incision without difficulty. A nuchal cord was reduced without difficulty. The mouth and nares were bulb suctioned. After a 30 second delay the cord was clamped and cut. The was handed off to the awaiting outbound sales consultant for routine assessment. Placenta was delivered manually without difficulty. The uterus was exteriorized and cleared of all clots and debris. Incision was closed with an 0 Vicryl suture in a running locked fashion. Second layer of 1-0 monocryl suture was used in imbricating manner to create excellent closure and hemostasis. The uterus was returned to the abdomen. The gutters were cleared of all clots and debris. The peritoneum was closed in a pursestring pattern using a 3-0 Vicryl suture. This muscle was reapproximated with a 3-0 Vicryl. The fascia was closed with an 0-PDS suture. Subcutaneous tissue layer was closed using a plain gut suture. The skin was closed with a 4-0 Monocryl subcuticular stitch. The skin was also sealed with surgical glue. The patient tolerated the procedure well sponge lap and needle counts were correct at each tissue closure plane and the patient is now being brought to the recovery room in stable condition Presentation: Positive for Vertex Amniotic Fluid Description: Clear Placental Delivery Description: Manual Removal Placenta Disposition: [facility] Cord Vessel Description: 3 Vessels Cord Entanglement: Around neck x 1, loose Infant A Gender: Male (1 minute): 8 (5 minute): 9 Delayed Cord Clamping: Yes Complications Risks of Surgery Discussed w/Patient: Anesthesia Risks, Infection, Need for Future C-Sections and Injury to surrounding structure(s) including bowel and bladder Multi Select Codes Urinary/Genital Urinary/Genital CPT Codes: 18620 Delivery [facility]
[2023-08-26] MEDS: Oxytocin 15 Units/NS 250ml 15 UNITS/250 ML IV.SOLN 83 UNITS IV (17:35)
[2023-08-26] MEDS: Ketorolac 30 MG/ML Syringe IV ×2 (18:32→23:32)
[2023-08-26 19:21] LABS: Bedside Glucose 154 mg/dL (74-106)
--- NOTE | 2023-08-26 19:27 | NURSING ---
Bedside report given to this RN by Abdi DARNELL. This RN to resume care at this time.
[2023-08-26] MEDS: Lactated Ringers 1,000 ML 100 ML IV (20:00)
--- NOTE | 2023-08-26 22:54 | PCM.DC ---
Discharge Instructions Diet Discharge Diet: No restrictions Activity Discharge Activity: May Not Drive (for 2 weeks or while taking narcotic pain medications.), May Shower and May Take a Tub Bath (in 7 days.) May resume sexual activity in: 4-6 weeks Weight Bearing Status: Full weight bearing Lifting Restrictions: 20 pounds Dressing / Incision Call your doctor if your incision/area has: Continuous Slow Oozing, Sudden Increased Bleeding, Increased Pain/ Swelling, Increased Redness and Foul Smelling Discharge Call your doctor if you observe: Fever of 101 or Higher and Using more than 1 pad per hour Suture Line Care: Avoid Pulling/Pushing and Avoid Pinching/Bending Cleanse incision/area with: Soap & Water and Keep Dressing Clean & Dry Follow Up Care Please Follow Up With: Sridevi Barth DO When: Call [phone] to make an appointment for an incision check in 1-2 weeks. Test Results: Test results from this visit will be discussed in further detail at your follow-up appointment, if applicable. Discharge Plan Admission Admit Date/Time: 08/26/23 15:15 Attending Provider: Sridevi Barth Primary Care Provider: Care Physician,No Primary Instructions Patient Instructions: Kick Counts, ED False Labor, OB Triage: Return to Hospital or Notify Physician if you Experience: Discharge Orders/Prescriptions Prescriptions: New ibuprofen 800 mg tablet 800 mg PO Q8H PRN (Reason: pain) Qty: 30 0RF oxycodone-acetaminophen [Percocet] 5-325 mg tablet 1 tab PO Q4H PRN (Reason: pain) 7 Days Qty: 20 0RF Rx Instructions: 1-2 tabs q 4 hrs as needed for pain No Action (DME) FreeStyle Agustin 2 [place] Misc See Rx Instructions .Route Qty: 1 0RF Rx Instructions: As directed (DME) FreeStyle Agustin 2 Sensor Kit See Rx Instructions .Route Qty: 1 0RF Rx Instructions: As directed (DME) Blood Glucose Test Strip See Rx Instructions .MEDSUPPLY Qty: 120 5RF Rx Instructions: As directed-fasting & 2 hr post meals (DME) blood-glucose meter Misc See Rx Instructions .MEDSUPPLY Qty: 1 0RF Rx Instructions: As directed- Test fasting and 2 hours after meals (DME) lancets Misc See Rx Instructions .MEDSUPPLY Qty: 200 5RF Rx Instructions: As directed-fasting & 2 hr post meals Referrals / Follow Up: Care Physician,No Primary [Primary Care Provider] -
[2023-08-27 01:29] VITALS: BP 93/60; PULSE 75; RESP 16; O2SAT 97
[2023-08-27 03:39] VITALS: BP 103/58; PULSE 68; RESP 16; TEMP 36.1; O2SAT 99
[2023-08-27] MEDS: Acetaminophen 500 MG Tablet 1000 MG PO ×4 (03:51→22:13)
[2023-08-27] MEDS: Ibuprofen 600 MG Tablet PO ×3 (05:43→17:44)
[2023-08-27 05:59] LABS: Hematocrit 32.7 % (37-47); Hemoglobin 10.6 g/dL (12.0-15.0); Mean Corp Hgb Conc 32.4 g/dL (32-36); Mean Corpuscular Volume 86.3 fL (81-99); Mean Platelet Vol. 9.5 fl (6.2-12.0); Platelet Count 224 K/mm3 (150-450); RBC Distribution Width CV 12.9 % (11.6-14.6); RBC Distribution Width SD 40.2 fl (35.1-43.9); Red Blood Count 3.79 M/mm3 (4.2-5.4); White Blood Count 13.4 K/mm3 (4.4-11.0)
[2023-08-27 06:20] LABS: Bedside Glucose 111 mg/dL (74-106)
[2023-08-27 07:50] VITALS: BP 106/69; PULSE 63; RESP 16; TEMP 36.1; O2SAT 100
--- NOTE | 2023-08-27 08:03 | PN.OBGYN_ITS ---
Subjective Subjective Patient doing well without complaints. Tolerating PO. Ambulating and voiding without difficulty. feeding well. Denies chest pain, shortness of breath, calf pain/swelling, fevers, chills, lightheadedness. Objective Data Objective Data Vital Signs: Vital Signs Temp Pulse Resp BP Pulse Ox O2 Del Method 97.0 F L 68 16 103/58 L 99 Room Air 08/27/23 03:39 08/27/23 03:39 08/27/23 03:39 08/27/23 03:39 08/27/23 03:39 08/27/23 03:39 Oxygen Delivery Method Room Air Weight: 175 lb 6.4 oz Body Mass Index (BMI) 32.1 Intake & Output: Intake and Output for Last 24 Hours 08/25/23 08/26/23 08/27/23 23:59 23:59 23:59 Intake Total 1310.58 / 1310.58 408.33 / 408.33 Output Total 900 / 900 1200 / 1200 Balance 410.58 / 410.58 -791.67 / -791.67 Lab / Micro Data 08/27/23 05:50 Labs: Laboratory Results - last 24 hr 08/26/23 15:40: WBC 12.0 H, RBC 4.23, Hgb 11.8 L, Hct 36.0 L, MCV 85.1, MCH 27.9, MCHC 32.8, RDW Std Deviation 39.5, RDW Coeff of Katie 12.9, Plt Count 243, MPV 9.5, Immature Gran % (Auto) 0.900, Neut % (Auto) 76.5 H, Lymph % (Auto) 16.5 L, [place] % (Auto) 5.4, Eos % (Auto) 0.4, Baso % (Auto) 0.3, Absolute Neuts (auto) 9.2 H, Absolute Lymphs (auto) 1.98, Nucleated RBC % 0, Syphilis Total Ab Non- reactive, Blood Type O POSITIVE, Antibody Screen NEGATIVE 08/26/23 15:55: POC Glucose 57 L 08/26/23 16:15: POC Glucose 68 L 08/26/23 19:02: POC Glucose 154 H 08/27/23 05:50: WBC 13.4 H, RBC 3.79 L, Hgb 10.6 L, Hct 32.7 L, MCV 86.3, MCH 28.0, MCHC 32.4, RDW Std Deviation 40.2, RDW Coeff of Katie 12.9, Plt Count 224, MPV 9.5 08/27/23 06:00: POC Glucose 111 H Radiography Diagnostic Testing: Radiology Impression Biophysical Profile Ultrasound 08/26/23 10:58 IMPRESSION: Normal biophysical profile of 88. Electronically Signed: Kin Martines MD at 12:15 EDT , ROS Constitutional Constitutional: Reports systems reviewed and no addt'l complaints, except as documented Cardiovascular Cardiovascular: Reports systems reviewed and no addt'l complaints, except as documented Respiratory/Chest Respiratory/Chest: Reports systems reviewed and no addt'l complaints, except as documented Gastrointestinal Gastrointestinal: Reports systems reviewed and no addt'l complaints, except as documented Physical Exam Const alert, oriented x3 and no apparent distress HEENT Head and Scalp: atraumatic Resp normal respiratory effort Assessment & Plan (1) Status post section: PLAN: Plan s/p LTCS PPD # 1 1. routine post care 2. breast feeding- support given 3. rh positive 4. rubella immune
[2023-08-27] MEDS: Senna/Docusate Sodium 1 Tablet PO (10:47)
[2023-08-27 11:00] VITALS: BP 103/69; PULSE 98; RESP 16; TEMP 36.6
[2023-08-27 16:30] VITALS: BP 96/72; PULSE 80; RESP 16; TEMP 36.5; O2SAT 99
[2023-08-27 19:48] VITALS: BP 100/68; PULSE 85; RESP 16; TEMP 36.7; O2SAT 99
[2023-08-28] MEDS: Ibuprofen 600 MG Tablet PO ×3 (00:58→12:43)
[2023-08-28 00:59] VITALS: BP 96/68; PULSE 74; RESP 16; TEMP 36.5; O2SAT 100
[2023-08-28] MEDS: Acetaminophen 500 MG Tablet 1000 MG PO ×2 (04:04→09:48)
--- NOTE | 2023-08-28 08:11 | DS.PCM_ITS ---
Providers Date of Admission: 08/26/23 Date of Discharge: 08/28/23 Primary Care Physician: No Primary Care Phys Reason For Visit: PRIMARY Diagnosis Discharge Diagnosis (1) Status post section: Status: Acute Code(s): Z98.891 - History of uterine scar from previous surgery Plan: s/p LTCS PPD # 1. routine post care 2. breast feeding- support given 3. rh positive 4. rubella immune 5. Discharge Home (2) heart rate decelerations affecting management of mother: Status: Acute Code(s): O36.8390 - Maternal care for abnormalities of the heart rate or rhythm, unspecified trimester, not applicable or unspecified (3) Abnormal glucose affecting : Status: Acute Code(s): O99.810 - Abnormal glucose complicating (4) Supervision of high-risk : Status: Acute Code(s): O09.90 - Supervision of high risk , unspecified, unspecified trimester Qualifiers: Trimester: second trimester Qualified Code(s): O09.92 - Supervision of high risk , unspecified, second trimester (5) : Status: Acute Code(s): Z34.90 - Encounter for supervision of normal , unspecified, unspecified trimester Qualifiers: Weeks of gestation: 36 weeks Qualified Code(s): Z3A.36 - 36 weeks gestation of (6) Uterine fibroid: Status: Acute Code(s): D25.9 - Leiomyoma of uterus, unspecified Qualifiers: Uterine leiomyoma location: unspecified location Qualified Code(s): D 25.9 - Leiomyoma of uterus, unspecified (7) H/O section: Status: Acute Code(s): Z98.891 - History of uterine scar from previous surgery Medications at Discharge Home Medications blood sugar diagnostic (Blood Glucose Test strips) #120 ea 07/09/23 blood-glucose meter #1 ea 07/09/23 lancets #200 ea 07/09/23 flash glucose scanning reader (FreeStyle Agustin 2 [place]) #1 ea 07/24/23 flash glucose sensor (FreeStyle Agustin 2 Sensor kit) #1 ea 07/24/23 ibuprofen 800 mg tablet 800 mg PO Q8H PRN pain #30 tabs 08/26/23 oxycodone-acetaminophen 5 mg-325 mg tablet (Percocet) 1 tab PO Q4H PRN pain 7 days #20 tabs 08/26/23 acetaminophen 500 mg tablet 1,000 mg (2 x 500 mg) PO Q6H #30 tabs 08/28/23 Hospital Course Operations section Procedures None Summary of Care Provided Minutes Spent on Discharge: 30 Physical Exam Const alert, oriented x3 and no apparent distress Neck full ROM Resp normal respiratory effort, normal air movement and no retractions Effort and Inspection: able to speak in complete sentences and symmetric chest movement GI soft to palpation Inspection: incision intact Bladder / Kidney Exam: bladder normal to palpation Uterus Palpation: uterus fundus Extremity normal to inspection and full ROM Psych mental status grossly normal, thought process normal and cooperative Weight / BMI Weight Weight: 175 lb 6.4 oz Body Mass Index (BMI) 32.1 ABG / Lab / Microbiology Data 08/27/23 05:50 D/C Instructions Discharge Diet: No restrictions May shower in (days): 0 May resume sexual activity in: 4-6 weeks Weight Bearing Status: Full weight bearing Call your doctor if your incision/area has: Continuous Slow Oozing, Sudden Increased Bleeding, Increased Pain/ Swelling, Increased Redness and Foul Smelling Discharge Call your doctor if you observe: Fever of 101 or Higher and Using more than 1 pad per hour Suture Line Care: Avoid Pulling/Pushing and Avoid Pinching/Bending Cleanse incision/area with: Soap & Water and Keep Dressing Clean & Dry Please Follow Up With: Sridevi Barth DO When: Call [phone] to make an appointment in 1-2 weeks. Meaningful Use Info Meaningful Use Meaningful Use Diagnoses (Choose all that apply): None applicable Ischemic Stroke Statin Dosing Therapy Reference: STATIN DOSE THERAPY REFERENCE: * Patients > 75 years receive moderate or high dose statin therapy. * Patients 75 years or YOUNGER should receive HIGH intensity statin dose unless contraindicated. You will be required to document reason for non-treatment if statin daily dose does not meet guidelines. HIGH DOSE STATIN THERAPY DAILY Atorvastatin > than or = to 40 mg Rosuvastatin > than or = to 20 mg Amlodipine + Atorvastatin > than or = to 2.5/40 mg Ezetimibe + Simvastatin 10/80 mg Simvastatin 80mg Discharge Plan Admission Admit Date/Time: 08/26/23 15:15 Attending Provider: Sridevi Barth Primary Care Provider: Care Physician,No Primary Instructions Patient Instructions: Kick Counts, ED False Labor, OB Triage: Return to Hospital or Notify Physician if you Experience: Discharge Orders/Prescriptions Prescriptions: New ibuprofen 800 mg tablet 800 mg PO Q8H PRN (Reason: pain) Qty: 30 0RF oxycodone-acetaminophen [Percocet] 5-325 mg tablet 1 tab PO Q4H PRN (Reason: pain) 7 Days Qty: 20 0RF Rx Instructions: 1-2 tabs q 4 hrs as needed for pain acetaminophen 500 mg Tablet 1,000 mg PO Q6H Qty: 30 0RF No Action (DME) FreeStyle Agustin 2 [place] Misc See Rx Instructions .Route Qty: 1 0RF Rx Instructions: As directed (DME) FreeStyle Agustin 2 Sensor Kit See Rx Instructions .Route Qty: 1 0RF Rx Instructions: As directed (DME) Blood Glucose Test Strip See Rx Instructions .MEDSUPPLY Qty: 120 5RF Rx Instructions: As directed-fasting & 2 hr post meals (DME) blood-glucose meter Misc See Rx Instructions .MEDSUPPLY Qty: 1 0RF Rx Instructions: As directed- Test fasting and 2 hours after meals (DME) lancets Misc See Rx Instructions .MEDSUPPLY Qty: 200 5RF Rx Instructions: As directed-fasting & 2 hr post meals Referrals / Follow Up: Care Physician,No Primary [Primary Care Provider] - Disposition Disposition (needs filled in before D/C Order can be placed): Home, Self Care Charges/Coding Multi Select Codes Urinary/Genital Urinary/Genital CPT Codes: No Charge
--- NOTE | 2023-08-28 08:14 | PN.OBGYN_ITS ---
Subjective Subjective Patient doing well without complaints. Tolerating PO. Ambulating and voiding without difficulty. Feeding well. Denies chest pain, shortness of breath, calf pain/swelling, fevers, chills, lightheadedness. Objective Data Objective Data Vital Signs: Vital Signs Temp Pulse Resp BP Pulse Ox O2 Del Method 97.7 F L 74 16 96/68 100 Room Air 08/28/23 00:59 08/28/23 00:59 08/28/23 00:59 08/28/23 00:59 08/28/23 00:59 08/28/23 00:59 Oxygen Delivery Method Room Air Weight: 175 lb 6.4 oz Body Mass Index (BMI) 32.1 Intake & Output: Intake and Output for Last 24 Hours 08/26/23 08/27/23 08/28/23 23:59 23:59 23:59 Intake Total 1310.58 / 1310.58 408.33 / 408.33 Output Total 900 / 900 1200 / 1200 Balance 410.58 / 410.58 -791.67 / -791.67 Lab / Micro Data Attestation: I reviewed the patient's lab results. 08/27/23 05:50 ROS Constitutional Constitutional: Reports systems reviewed and no addt'l complaints, except as documented; Denies anorexia or headache(s) Cardiovascular Cardiovascular: Reports systems reviewed and no addt'l complaints, except as documented; Denies dizziness, dyspnea, nausea or tachypnea Respiratory/Chest Respiratory/Chest: Reports systems reviewed and no addt'l complaints, except as documented; Denies cough, dyspnea, shortness of breath at rest or tachypnea Gastrointestinal Gastrointestinal: Reports systems reviewed and no addt'l complaints, except as documented; Denies abdominal pain, constipation or nausea Genitourinary Genitourinary: Reports systems reviewed and no addt'l complaints, except as documented; Denies burning urination, difficulty urinating, dysuria, urinary frequency or urinary incontinence Musculoskeletal Musculoskeletal: Reports systems reviewed and no addt'l complaints, except as documented Integumentary Integumentary: Reports systems reviewed and no addt'l complaints, except as documented Neurologic Neurologic: Reports systems reviewed and no addt'l complaints, except as documented; Denies abnormal speech, dizziness or headache(s) Psychiatric Psychiatric: Reports systems reviewed and no addt'l complaints, except as documented Endocrine Endocrinology: Reports systems reviewed and no addt'l complaints, except as documented Hematologic/Lymphatic Hematologic/Lymphatic: Reports systems reviewed and no addt'l complaints, except as documented Physical Exam Const alert, oriented x3 and no apparent distress Neck full ROM Resp normal respiratory effort, normal air movement and no retractions Effort and Inspection: able to speak in complete sentences and symmetric chest movement GI soft to palpation Bladder / Kidney Exam: bladder normal to palpation Uterus Palpation: uterus fundus firm Extremity normal to inspection and full ROM Psych mental status grossly normal, thought process normal and cooperative Assessment & Plan (1) Status post section: PLAN: s/p LTCS PPD # 2 1. routine post care 2. breast feeding- support given 3. rh positive 4. rubella immune 5. Discharge Home (2) heart rate decelerations affecting management of mother: (3) Abnormal glucose affecting : COMMENT: Missed 4th draw-lab told her she could leave and go eat. Patient with test glucose X 2 weeks. (4) Supervision of high-risk : QUALIFIERS: Trimester: second trimester Qualified Code(s): O09.92 - Supervision of high risk , unspecified, second trimester COMMENT: , KATE 09/17/23, PC: Victoria, : Sharif (5) : QUALIFIERS: Weeks of gestation: 36 weeks Qualified Code(s): Z 3A.36 - 36 weeks gestation of COMMENT: Discussed genetic/carrier testing, nl anatomy (6) Uterine fibroid: QUALIFIERS: Uterine leiomyoma location: unspecified location Q ualified Code(s): D25.9 - Leiomyoma of uterus, unspecified COMMENT: small subserosal fibroid (7) H/O section: COMMENT: Wants C Section!! in [place], 2014. P C/C for Mec stained fluid. Records needed. -unable to get records. incision is unknown. -she is undecided if wants to proceed with rpt section or wants TOLAC. risks discussed today. -as of 07/24/2023 wants to try . -changed mind about on 08/03. plan rpt section R[facility]CS scheduled for 09/09 @ 7:10 with [facility] Charges/Coding Multi Select Codes Urinary/Genital Urinary/Genital CPT Codes: No Charge
[2023-08-28] MEDS: Senna/Docusate Sodium 1 Tablet PO (09:40)
[2023-08-28 10:00] VITALS: BP 106/69; PULSE 95; RESP 16; TEMP 36.4; O2SAT 100
--- NOTE | 2023-09-01 14:53 | NURSING ---
Follow up phone call made. no answer, left voicemail
== END 2023-08-28 13:20 | disposition home or self-care (01) | DRG 786 ==
LOC: WPOUT 15:20 → WP 15:21
PROVIDERS: Admitting Provider Obstetrics & Gynecology; Referring Provider Obstetrics & Gynecology; Visit Provider Obstetrics & Gynecology
DX: O76 Abnormality in fetal heart rate and rhythm complicating labor and delivery (principal); O60.14X0 Preterm labor third trimester with preterm delivery third trimester, not applicable or unspecified; O99.814 Abnormal glucose complicating childbirth; D25.9 Leiomyoma of uterus, unspecified; Z37.0 Single live birth; O34.211 Maternal care for low transverse scar from previous cesarean delivery; O69.81X0 Labor and delivery complicated by cord around neck, without compression, not applicable or unspecified; Z3A.36 36 weeks gestation of pregnancy; O34.13 Maternal care for benign tumor of corpus uteri, third trimester
CPT/HCPCS: 59025; 59050; 76819; 82962; 85025; 85027; 86780; 86850; 86900; 86901; 99221; J7120; G0378; J2405